=== PATIENT | male | born 2000 | race Two or more races ===

== ENCOUNTER 2019-05-10 22:20 | Emergency (ER) | payer BC, OTHER ==
[~2019-05-10] VITALS: Ht 172.7 cm; Wt 59.0 kg
--- NOTE | 2019-05-10 23:00 | NUR ---
After being triaged patient elected not to be seen by ERMD. Patient was triaged but not seen by ERMD.
== END 2019-05-10 23:00 | disposition left against medical advice (07) ==
LOC: ER 22:20
DX: Z53.21 Procedure and treatment not carried out due to patient leaving prior to being seen by health care provider (principal)
CPT/HCPCS: A4663